=== PATIENT | female | born 1945 | race Caucasian/White ===

== ENCOUNTER 2020-11-15 20:40 | Inpatient (IN) ==
[2020-11-15] MEDS ORDERED: Isovue-370 500 ML BOTTLE IVP ONE (21:25)
[2020-11-15 21:52] LABS: Basophils # 0.1 K/mcL (0.0-0.2); Basophils % 0.6 %; Eosinophils # 0.1 K/mcL (0.0-0.6); Eosinophils % 1.4 %; Hematocrit 19.8 % (35.3-44.9); Immature Granulocytes % 0.4 % (0-4); Lymphocytes # 1.6 K/mcL (0.6-4.6); Mean Corpuscular HGB Conc 30.3 g/dL (31.6-35.5); Mean Corpuscular Volume 89.2 fL (83.0-100.0); Mean Platelet Volume 9.2 fL (9.4-12.4); Monocytes # 0.9 K/mcL (0.0-1.3); Monocytes % 11.2 %; Neutrophils # 5.7 K/mcL (1.6-8.9); Platelet Count 294 K/mcL (140-400); Red Blood Count 2.22 M/mcL (3.82-4.97); Red Cell Distribution Width 13.3 % (11.5-14.5); Segmented Neutrophils % 67.4 %; White Blood Count 8.4 K/mcL (4.3-11.1)
[2020-11-15 22:17] LABS: Alanine Aminotransferase 9 Units/L (7-52); Albumin 3.3 g/dL (3.5-5.7); Alkaline Phosphatase 54 Units/L (34-104); Aspartate Amino Transferase 19 Units/L (13-39); BUN/Creatinine Ratio 29 (6-26); Bilirubin,Direct 0.2 mg/dL (0.0-0.2); Bilirubin,Indirect 0.7 mg/dL (0.0-1.0); Bilirubin,Total 0.9 mg/dL (0.3-1.0); Blood Urea Nitrogen 27 mg/dL (8-23); Calcium 8.9 mg/dL (8.6-10.3); Carbon Dioxide 29 mEq/L (23-29); Chloride 104 mEq/L (98-107); Globulin 3.3 g/dL (2.4-3.5); Glucose 165 mg/dL (70-105); Lipase 59 Units/L (11-82); Osmolality,Calculated 299 (280-300); Potassium 3.7 mEq/L (3.5-5.1); Sodium 140 mEq/L (136-145); Total Protein 6.6 g/dL (6.4-8.9); Troponin I < 0.03 ng/mL (< 0.04); eGFR For African Americans > 60 (> 60); eGFR For Non-African Americans 58 (> 60)
[2020-11-15 22:19] LABS: INR 4.7; Prothrombin Time 51.7 Seconds (9.4-12.1)
[2020-11-15] MEDS ORDERED: Pantoprazole 80 MG in 0.9 % Sodium Chloride 50 ML IVPB ONE (22:45)
[2020-11-16] MEDS ORDERED: Gadolinium Contrast Agent (WT Based) IV PRN (00:30)
[2020-11-16] MEDS ORDERED: 0.9 % Sodium Chloride 1,000 ML IVC SCH (00:30)
[2020-11-16] MEDS ORDERED: D5% in Water 1,000 ML IVC PRN (01:36)
[2020-11-16] MEDS ORDERED: *HR* Dextrose 50 % in Water (Vial) 50 ML VIAL IVP PRN (01:36)
[2020-11-16] MEDS ORDERED: Dextrose Gel 15 GM/37.5 ML TUBE PO PRN ×2 (01:36)
[2020-11-16] MEDS ORDERED: 0.9 % Sodium Chloride 250 ML ONE ×3 (01:57→11:22)
[2020-11-16] MEDS: Pantoprazole 40 MG VIAL IVP SCH ×2 (05:53→17:26)
[2020-11-16] MEDS: Insulin LISPRO 300 UNITS/3 ML VIAL SUBQ SCH ×3 (05:58→17:28)
[2020-11-16 06:05] LABS: INR 2.9; Prothrombin Time 32.5 Seconds (9.4-12.1)
[2020-11-16 06:08] LABS: Activated Partial Thrombo Time 20.4 Seconds (26.0-36.0)
[2020-11-16 06:29] LABS: Bacteria,Urine Moderate per hpf (None-Few); Bilirubin,Urine Negative (Negative); Blood,Urine Small (Negative); Clarity,Urine Clear (Clear); Color,Urine Light-Yellow (Yellow); Glucose,Urine (UA) Normal (Normal); Ketones,Urine Negative (Negative); Leukocyte Esterase,Urine Large (Negative); Mucus,Urine Few per lpf (None-Few); Nitrite,Urine Negative (Negative); Protein,Urine Trace mg/dL (Neg-Trace); Specific Gravity,Urine > 1.030 (1.010-1.025); Squamous Epithelial Cell,Urine Few per hpf (None-Few); Urobilinogen,Urine Normal (Normal); WBC,Urine TNTC per hpf (0-3)
[2020-11-16 10:34] LABS: Hematocrit 21.4 % (35.3-44.9); Hemoglobin 6.8 g/dL (11.5-15.4); Mean Corpuscular HGB Conc 31.8 g/dL (31.6-35.5); Mean Corpuscular Hemoglobin 27.8 pg (28.0-33.3); Mean Corpuscular Volume 87.3 fL (83.0-100.0); Mean Platelet Volume 9.1 fL (9.4-12.4); Platelet Count 251 K/mcL (140-400); Red Blood Count 2.45 M/mcL (3.82-4.97); Red Cell Distribution Width 13.5 % (11.5-14.5); White Blood Count 10.5 K/mcL (4.3-11.1)
[2020-11-16] MEDS ORDERED: Levalbuterol Neb 0.63 MG/3 ML IH PRN (10:47)
[2020-11-16 10:49] LABS: BUN/Creatinine Ratio 28 (6-26); Blood Urea Nitrogen 22 mg/dL (8-23); Calcium 8.6 mg/dL (8.6-10.3); Carbon Dioxide 28 mEq/L (23-29); Chloride 106 mEq/L (98-107); Glucose 114 mg/dL (70-105); Osmolality,Calculated 294 (280-300); Potassium 3.9 mEq/L (3.5-5.1); Sodium 140 mEq/L (136-145); eGFR For African Americans > 60 (> 60); eGFR For Non-African Americans > 60 (> 60)
[2020-11-16] MEDS ORDERED: 0.9 % Sodium Chloride 250 ML IVC SCH (11:00)
[2020-11-16] MEDS: *HR* Metoprolol 5 MG/5 ML VIAL IVP SCH ×2 (12:26→17:26)
[2020-11-16] MEDS ORDERED: *HR* Metoprolol 5 MG/5 ML VIAL IVP ONE (12:59)
[2020-11-16 16:59] LABS: Hematocrit 25.6 % (35.3-44.9); Hemoglobin 8.2 g/dL (11.5-15.4)
[2020-11-16] MEDS ORDERED: SODIUM CHLORIDE/NAHCO3/KCL/PEG 4,000 ML SOLN.RECON PO ONE (17:00)
[2020-11-17] MEDS: Insulin LISPRO 300 UNITS/3 ML VIAL SUBQ SCH ×5 (00:31→20:46)
[2020-11-17 02:42] LABS: Basophils # 0.1 K/mcL (0.0-0.2); Basophils % 0.5 %; Eosinophils # 0.1 K/mcL (0.0-0.6); Eosinophils % 0.6 %; Hematocrit 26.4 % (35.3-44.9); Hemoglobin 8.4 g/dL (11.5-15.4); Immature Granulocytes % 0.7 % (0-4); Lymphocytes # 1.4 K/mcL (0.6-4.6); Lymphocytes % 12.6 %; Mean Corpuscular HGB Conc 31.8 g/dL (31.6-35.5); Mean Corpuscular Hemoglobin 28.2 pg (28.0-33.3); Mean Corpuscular Volume 88.6 fL (83.0-100.0); Mean Platelet Volume 9.6 fL (9.4-12.4); Monocytes # 1.2 K/mcL (0.0-1.3); Monocytes % 10.6 %; Neutrophils # 8.6 K/mcL (1.6-8.9); Nucleated Red Blood Cells 0.2 /100 WBC (0); Platelet Count 260 K/mcL (140-400); Red Blood Count 2.98 M/mcL (3.82-4.97); White Blood Count 11.5 K/mcL (4.3-11.1)
[2020-11-17 03:03] LABS: BUN/Creatinine Ratio 22 (6-26); Blood Urea Nitrogen 17 mg/dL (8-23); Calcium 8.4 mg/dL (8.6-10.3); Carbon Dioxide 26 mEq/L (23-29); Chloride 106 mEq/L (98-107); Glucose 148 mg/dL (70-105); Magnesium 2.3 mg/dL (1.6-2.6); Osmolality,Calculated 292 (280-300); Potassium 3.8 mEq/L (3.5-5.1); Sodium 139 mEq/L (136-145); eGFR For African Americans > 60 (> 60); eGFR For Non-African Americans > 60 (> 60)
[2020-11-17] MEDS ORDERED: *HR* Metoprolol 5 MG/5 ML VIAL IVP ONE ×2 (03:07→04:53)
[2020-11-17] MEDS: Ondansetron 4 MG/2 ML VIAL IVP PRN (04:16)
[2020-11-17] MEDS: Pantoprazole 40 MG VIAL IVP SCH (06:27)
[2020-11-17] MEDS: *HR* Metoprolol 5 MG/5 ML VIAL IVP SCH (06:28)
[2020-11-17] MEDS ORDERED: Simethicone 40 MG/0.6 ML MLS IR ONE (09:30)
[2020-11-17] MEDS ORDERED: *HR* Propofol 200 MG/20 ML VIAL IVP ONE (10:59)
[2020-11-17] MEDS ORDERED: Lidocaine -MPF 2% 5 ML VIAL INFILT ONE (10:59)
[2020-11-17] MEDS ORDERED: Perflutren Lipid Microsphere 1.3 ML in 0.9 % Sodium Chloride 8.7 ML IVP PRN (14:11)
[2020-11-17] MEDS ORDERED: Furosemide 40 MG/4 ML VIAL IVP ONE (14:13)
[2020-11-17 16:14] LABS: Hemoglobin 8.3 g/dL (11.5-15.4)
[2020-11-17] MEDS: Losartan/HCTZ 50-12.5 TABLET PO SCH (20:46)
[2020-11-18 06:16] LABS: Basophils % 0.2 %; Eosinophils # 0.2 K/mcL (0.0-0.6); Eosinophils % 1.8 %; Immature Granulocytes % 0.3 % (0-4); Lymphocytes # 1.4 K/mcL (0.6-4.6); Lymphocytes % 12.6 %; Mean Corpuscular HGB Conc 30.8 g/dL (31.6-35.5); Mean Corpuscular Hemoglobin 28.1 pg (28.0-33.3); Mean Corpuscular Volume 91.2 fL (83.0-100.0); Monocytes # 1.4 K/mcL (0.0-1.3); Monocytes % 12.5 %; Neutrophils # 8.3 K/mcL (1.6-8.9); Nucleated Red Blood Cells 0.2 /100 WBC (0); Platelet Count 231 K/mcL (140-400); Red Blood Count 2.85 M/mcL (3.82-4.97); Red Cell Distribution Width 14.4 % (11.5-14.5); Segmented Neutrophils % 72.6 %; White Blood Count 11.4 K/mcL (4.3-11.1)
[2020-11-18 06:44] LABS: BUN/Creatinine Ratio 18 (6-26); Blood Urea Nitrogen 14 mg/dL (8-23); Calcium 8.2 mg/dL (8.6-10.3); Carbon Dioxide 29 mEq/L (23-29); Chloride 102 mEq/L (98-107); Glucose 136 mg/dL (70-105); Osmolality,Calculated 289 (280-300); Potassium 3.6 mEq/L (3.5-5.1); Sodium 138 mEq/L (136-145); eGFR For African Americans > 60 (> 60); eGFR For Non-African Americans > 60 (> 60)
[2020-11-18] MEDS: Insulin LISPRO 300 UNITS/3 ML VIAL SUBQ SCH ×4 (08:21→20:25)
[2020-11-18] MEDS: Losartan/HCTZ 50-12.5 TABLET PO SCH ×2 (10:12→20:14)
[2020-11-18] MEDS ORDERED: *HR* Metoprolol 5 MG/5 ML VIAL IVP ONE ×2 (10:18→11:04)
[2020-11-18] MEDS ORDERED: *HR* Phenylephrine 10 MG/ML VIAL IVC ONE (11:04)
[2020-11-18] MEDS ORDERED: *HR* Propofol 500 MG/50 ML BOTTLE IVP ONE (11:04)
[2020-11-18] MEDS ORDERED: Lidocaine -MPF 2% 5 ML VIAL INFILT ONE (11:04)
[2020-11-18] MEDS ORDERED: Ipratropium/Albuterol Neb 3 ML IH ONE (12:15)
[2020-11-18] MEDS ORDERED: Perflutren Lipid Microsphere 1.3 ML in 0.9 % Sodium Chloride 8.7 ML IVP PRN (15:24)
[2020-11-18] MEDS: Aspirin Enteric Coated 81 MG Tablet PO SCH (16:37)
[2020-11-18] MEDS ORDERED: *HR* Rivaroxaban 10 MG TABLET PO SCH (17:00)
[2020-11-18] MEDS: Ondansetron 4 MG/2 ML VIAL IVP PRN (17:29)
[2020-11-19 04:54] LABS: Basophils % 0.4 %; Eosinophils # 0.3 K/mcL (0.0-0.6); Eosinophils % 2.6 %; Hemoglobin 7.7 g/dL (11.5-15.4); Immature Granulocytes % 0.4 % (0-4); Lymphocytes # 1.4 K/mcL (0.6-4.6); Lymphocytes % 14.7 %; Mean Corpuscular HGB Conc 30.8 g/dL (31.6-35.5); Mean Corpuscular Hemoglobin 28.1 pg (28.0-33.3); Mean Corpuscular Volume 91.2 fL (83.0-100.0); Mean Platelet Volume 9.8 fL (9.4-12.4); Monocytes # 1.3 K/mcL (0.0-1.3); Monocytes % 13.7 %; Neutrophils # 6.5 K/mcL (1.6-8.9); Nucleated Red Blood Cells 0.2 /100 WBC (0); Platelet Count 220 K/mcL (140-400); Red Blood Count 2.74 M/mcL (3.82-4.97); Red Cell Distribution Width 14.7 % (11.5-14.5); Segmented Neutrophils % 68.2 %; White Blood Count 9.6 K/mcL (4.3-11.1)
[2020-11-19 05:14] LABS: BUN/Creatinine Ratio 22 (6-26); Blood Urea Nitrogen 20 mg/dL (8-23); Calcium 8.3 mg/dL (8.6-10.3); Carbon Dioxide 33 mEq/L (23-29); Chloride 102 mEq/L (98-107); Glucose 149 mg/dL (70-105); Osmolality,Calculated 291 (280-300); Potassium 3.6 mEq/L (3.5-5.1); Sodium 138 mEq/L (136-145); eGFR For African Americans > 60 (> 60); eGFR For Non-African Americans > 60 (> 60)
[2020-11-19] MEDS ORDERED: 0.9 % Sodium Chloride 500 ML IVC ONE ×2 (08:00→09:32)
[2020-11-19] MEDS: Ipratropium Neb 0.5 MG NEBULIZER IH SCH ×5 (08:29→20:12)
[2020-11-19] MEDS ORDERED: methylPREDNISolone 125 MG/2 ML VIAL ONE (08:40)
[2020-11-19] MEDS: methylPREDNISolone 125 MG/2 ML VIAL IVP SCH ×2 (08:58→17:49)
[2020-11-19] MEDS: Aspirin Enteric Coated 81 MG Tablet PO SCH (08:59)
[2020-11-19] MEDS: Insulin LISPRO 300 UNITS/3 ML VIAL SUBQ SCH ×4 (08:59→20:39)
[2020-11-19 09:15] LABS: Hematocrit 26.6 % (35.3-44.9); Hemoglobin 8.1 g/dL (11.5-15.4)
[2020-11-19] MEDS ORDERED: Levalbuterol Neb 1.25 MG/3 ML IH SCH (10:00)
[2020-11-19] MEDS: cefTRIAXone 1,000 MG in Water for inj. (sterile) 10 ML IVP SCH (10:02)
[2020-11-19] MEDS: Levalbuterol Neb 0.63 MG/3 ML IH SCH ×5 (11:00→20:12)
[2020-11-19] MEDS ORDERED: 0.9 % Sodium Chloride 500 ML ONE (19:03)
[2020-11-19] MEDS: DilTIAZem 50 MG/50 ML IV.SOLN IVC SCH (19:11)
[2020-11-20] MEDS: Levalbuterol Neb 0.63 MG/3 ML IH SCH ×7 (00:06→23:29)
[2020-11-20] MEDS: Ipratropium Neb 0.5 MG NEBULIZER IH SCH ×7 (00:07→23:29)
[2020-11-20] MEDS: DilTIAZem 50 MG/50 ML IV.SOLN IVC SCH ×2 (00:22→21:33)
[2020-11-20 05:15] LABS: Basophils % 0.1 %; Hematocrit 25.5 % (35.3-44.9); Hemoglobin 7.8 g/dL (11.5-15.4); Immature Granulocytes % 0.6 % (0-4); Lymphocytes # 0.6 K/mcL (0.6-4.6); Lymphocytes % 5.9 %; Mean Corpuscular HGB Conc 30.6 g/dL (31.6-35.5); Mean Corpuscular Hemoglobin 27.7 pg (28.0-33.3); Mean Corpuscular Volume 90.4 fL (83.0-100.0); Mean Platelet Volume 9.8 fL (9.4-12.4); Monocytes # 0.5 K/mcL (0.0-1.3); Monocytes % 4.4 %; Neutrophils # 9.6 K/mcL (1.6-8.9); Platelet Count 259 K/mcL (140-400); Red Blood Count 2.82 M/mcL (3.82-4.97); Red Cell Distribution Width 14.6 % (11.5-14.5); White Blood Count 10.8 K/mcL (4.3-11.1)
[2020-11-20 05:33] LABS: BUN/Creatinine Ratio 29 (6-26); Blood Urea Nitrogen 23 mg/dL (8-23); Calcium 8.5 mg/dL (8.6-10.3); Carbon Dioxide 32 mEq/L (23-29); Chloride 103 mEq/L (98-107); Glucose 220 mg/dL (70-105); Osmolality,Calculated 298 (280-300); Potassium 4.3 mEq/L (3.5-5.1); Sodium 139 mEq/L (136-145); eGFR For African Americans > 60 (> 60); eGFR For Non-African Americans > 60 (> 60)
[2020-11-20] MEDS: methylPREDNISolone 125 MG/2 ML VIAL IVP SCH ×2 (05:35→18:00)
[2020-11-20 07:59] LABS: Hematocrit 27.4 % (35.3-44.9); Hemoglobin 8.5 g/dL (11.5-15.4)
[2020-11-20 08:49] LABS: Ferritin 21 ng/mL (10-120); Iron < 10 mcg/dL (50-170); Transferrin 374 mg/dL (203-362)
[2020-11-20] MEDS: cefTRIAXone 1,000 MG in Water for inj. (sterile) 10 ML IVP SCH (09:22)
[2020-11-20] MEDS: Insulin LISPRO 300 UNITS/3 ML VIAL SUBQ SCH ×4 (09:28→21:20)
[2020-11-20] MEDS: Iron Sucrose Complex 250 MG in 0.9 % Sodium Chloride 250 ML IVPB SCH (11:12)
[2020-11-20] MEDS ORDERED: Isovue-370 500 ML BOTTLE IVP ONE (16:18)
[2020-11-20] MEDS ORDERED: Vancomycin 1,250 MG/262.5 ML IV.SOLN IVPB ONE (17:30)
[2020-11-20 18:26] LABS: Hematocrit 26.1 % (35.3-44.9); Hemoglobin 7.9 g/dL (11.5-15.4)
[2020-11-21 01:21] LABS: Hematocrit 29.3 % (35.3-44.9); Hemoglobin 8.7 g/dL (11.5-15.4)
[2020-11-21 01:23] LABS: Calcium 8.9 mg/dL (8.6-10.3); Potassium 4.2 mEq/L (3.5-5.1)
[2020-11-21] MEDS: Ipratropium Neb 0.5 MG NEBULIZER IH SCH ×6 (03:49→23:50)
[2020-11-21] MEDS: Levalbuterol Neb 0.63 MG/3 ML IH SCH ×6 (03:49→23:50)
[2020-11-21] MEDS: methylPREDNISolone 125 MG/2 ML VIAL IVP SCH (05:58)
[2020-11-21 07:00] LABS: Hematocrit 27.7 % (35.3-44.9); Hemoglobin 8.2 g/dL (11.5-15.4); Mean Corpuscular HGB Conc 29.6 g/dL (31.6-35.5); Mean Corpuscular Volume 91.1 fL (83.0-100.0); Mean Platelet Volume 9.6 fL (9.4-12.4); Platelet Count 259 K/mcL (140-400); Red Blood Count 3.04 M/mcL (3.82-4.97); Red Cell Distribution Width 15.1 % (11.5-14.5)
[2020-11-21 07:01] LABS: White Blood Count 19.3 K/mcL (4.3-11.1)
[2020-11-21] MEDS ORDERED: Furosemide 40 MG/4 ML VIAL IVP ONE (08:40)
[2020-11-21] MEDS: Insulin LISPRO 300 UNITS/3 ML VIAL SUBQ SCH ×4 (09:24→22:40)
[2020-11-21] MEDS: cefTRIAXone 1,000 MG in Water for inj. (sterile) 10 ML IVP SCH (09:24)
[2020-11-21] MEDS: DilTIAZem CD (24hr) 180 MG CAP.ER.24H PO SCH (09:25)
[2020-11-21] MEDS: predniSONE 20 MG TABLET PO SCH (09:25)
[2020-11-21] MEDS: Iron Sucrose Complex 250 MG in 0.9 % Sodium Chloride 250 ML IVPB SCH (09:26)
[2020-11-21 11:11] LABS: Bilirubin,Urine Negative (Negative); Blood,Urine Negative (Negative); Clarity,Urine Clear (Clear); Color,Urine Colorless (Yellow); Glucose,Urine (UA) 100 mg/dL (Normal); Ketones,Urine Negative (Negative); Leukocyte Esterase,Urine Negative (Negative); Nitrite,Urine Negative (Negative); Protein,Urine Negative (Neg-Trace); RBC,Urine 0-3 per hpf (0-3); Specific Gravity,Urine 1.009 (1.010-1.025); Squamous Epithelial Cell,Urine Few per hpf (None-Few); Urobilinogen,Urine Normal (Normal); WBC,Urine 0-3 per hpf (0-3)
[2020-11-21] MEDS: Vancomycin 1,250 MG/262.5 ML IV.SOLN IVPB SCH (18:33)
[2020-11-22 01:27] LABS: Hematocrit 25.8 % (35.3-44.9); Hemoglobin 7.8 g/dL (11.5-15.4); Mean Corpuscular HGB Conc 30.2 g/dL (31.6-35.5); Mean Corpuscular Hemoglobin 27.9 pg (28.0-33.3); Mean Corpuscular Volume 92.1 fL (83.0-100.0); Mean Platelet Volume 10.1 fL (9.4-12.4); Platelet Count 236 K/mcL (140-400); Red Cell Distribution Width 15.2 % (11.5-14.5); White Blood Count 16.3 K/mcL (4.3-11.1)
[2020-11-22 01:45] LABS: BUN/Creatinine Ratio 39 (6-26); Blood Urea Nitrogen 32 mg/dL (8-23); Calcium 8.7 mg/dL (8.6-10.3); Carbon Dioxide 33 mEq/L (23-29); Chloride 103 mEq/L (98-107); Glucose 247 mg/dL (70-105); Osmolality,Calculated 307 (280-300); Potassium 3.8 mEq/L (3.5-5.1); Sodium 141 mEq/L (136-145); eGFR For African Americans > 60 (> 60); eGFR For Non-African Americans > 60 (> 60)
[2020-11-22] MEDS: Ipratropium Neb 0.5 MG NEBULIZER IH SCH ×6 (04:28→23:10)
[2020-11-22] MEDS: Levalbuterol Neb 0.63 MG/3 ML IH SCH ×6 (04:28→23:10)
[2020-11-22] MEDS: Vancomycin 1,250 MG/262.5 ML IV.SOLN IVPB SCH (06:13)
[2020-11-22] MEDS: Insulin LISPRO 300 UNITS/3 ML VIAL SUBQ SCH ×5 (08:25→22:02)
[2020-11-22] MEDS ORDERED: Furosemide 20 MG TABLET PO SCH (09:00)
[2020-11-22] MEDS ORDERED: Furosemide 40 MG/4 ML VIAL IVP SCH (09:00)
[2020-11-22] MEDS: Iron Sucrose Complex 250 MG in 0.9 % Sodium Chloride 250 ML IVPB SCH (09:33)
[2020-11-22] MEDS: Furosemide 40 MG/4 ML VIAL IVP SCH ×2 (09:33→21:48)
[2020-11-22] MEDS: predniSONE 20 MG TABLET PO SCH (09:34)
[2020-11-22] MEDS: DilTIAZem CD (24hr) 180 MG CAP.ER.24H PO SCH (09:34)
[2020-11-22] MEDS: cefTRIAXone 1,000 MG in Water for inj. (sterile) 10 ML IVP SCH (09:34)
[2020-11-22] MEDS: Mag Hydrox/Al Hydrox/Simeth 30 ML UDC PO PRN (17:35)
[2020-11-23 03:26] LABS: Hematocrit 28.6 % (35.3-44.9); Hemoglobin 8.5 g/dL (11.5-15.4); Mean Corpuscular HGB Conc 29.7 g/dL (31.6-35.5); Mean Corpuscular Hemoglobin 27.3 pg (28.0-33.3); Platelet Count 240 K/mcL (140-400); Red Blood Count 3.11 M/mcL (3.82-4.97); Red Cell Distribution Width 15.8 % (11.5-14.5); White Blood Count 19.8 K/mcL (4.3-11.1)
[2020-11-23 03:46] LABS: BUN/Creatinine Ratio 37 (6-26); Blood Urea Nitrogen 34 mg/dL (8-23); Calcium 8.9 mg/dL (8.6-10.3); Carbon Dioxide 39 mEq/L (23-29); Chloride 97 mEq/L (98-107); Glucose 148 mg/dL (70-105); Osmolality,Calculated 302 (280-300); Potassium 3.5 mEq/L (3.5-5.1); Sodium 141 mEq/L (136-145); eGFR For African Americans > 60 (> 60); eGFR For Non-African Americans 59 (> 60)
[2020-11-23] MEDS: Levalbuterol Neb 0.63 MG/3 ML IH SCH ×4 (03:48→15:58)
[2020-11-23] MEDS: Ipratropium Neb 0.5 MG NEBULIZER IH SCH ×4 (03:48→15:58)
[2020-11-23] MEDS: Furosemide 40 MG TABLET PO SCH ×2 (09:07→16:40)
[2020-11-23] MEDS: DilTIAZem CD (24hr) 180 MG CAP.ER.24H PO SCH (09:07)
[2020-11-23] MEDS: cefTRIAXone 1,000 MG in Water for inj. (sterile) 10 ML IVP SCH (09:08)
[2020-11-23] MEDS: predniSONE 20 MG TABLET PO SCH (09:08)
[2020-11-23] MEDS: Insulin LISPRO 300 UNITS/3 ML VIAL SUBQ SCH ×2 (13:36→16:39)
[2020-11-23] MEDS: Mag Hydrox/Al Hydrox/Simeth 30 ML UDC PO PRN (13:36)
[2020-11-23 15:20] VITALS: BP 126/72
[2020-11-23] MEDS ORDERED: Nystatin POWDER 30 GM BOTTLE TP SCH (21:00)
[2020-11-24] MEDS ORDERED: Cefdinir 300 MG CAPSULE PO SCH (09:00)
== END 2020-11-23 18:25 | disposition home health service (06) | DRG 377 ==
LOC: 3ANU 20:40 → EMEROOARM 20:40 → 3ANU 11-16 00:29 → SUATTDRO 11-16 13:36
PROVIDERS: ADMIT Family Medicine; ATTEND Family Medicine